=== PATIENT | male | born 1980 | race Caucasian/White ===

== ENCOUNTER 2022-06-22 11:13 | Emergency (ER) | payer SELFPAY ==
[2022-06-22 13:35] LABS: Bilirubin Negative (Negative); Blood, Urine Negative (Negative); Clarity Clear (Clear); Glucose, Urine (Dipstick) Normal (Negative); Ketone, Urine Negative (Negative); Leukocyte 250 Leu/uL (Negative); Nitrite Negative (Negative); Protein, Urine (Dipstick) Negative (Neg-Trace); RBC/HPF 0-3 HPF (0-3); Renal Epithelial 0-3 HPF (None Seen); Specific Gravity, Urine 1.013 (1.002-1.036); Squamous Epithelial 0-3 HPF (0-3); Urobilinogen Normal mg/dL (Less than 2); pH, Urine 6.5 (5.0-9.0)
[2022-06-22 13:43] LABS: Bacteria/HPF Rare-Few HPF (None Seen)
[2022-06-22 14:11] LABS: SARS-CoV-2 NAA Rapid Test Not Detected (NotDetected)
[2022-06-22 22:18] LABS: Chlam.trachomatis by PCR,Urine Not Detected (NotDetected)
== END 2022-06-22 14:50 | disposition home or self-care (01) ==
LOC: ERS 11:13
DX: R30.0 Dysuria (principal); R82.81 Pyuria; R09.81 Nasal congestion; I10 Essential (primary) hypertension; F17.210 Nicotine dependence, cigarettes, uncomplicated; Z20.822 Contact with and (suspected) exposure to COVID-19
CPT/HCPCS: 74176; 81003; 81015; 87086; 87491; 87591

== ENCOUNTER 2025-07-16 10:27 | Emergency (ER) | payer OTHER, SELFPAY ==
[2025-07-16 10:58] LABS: CAUTI Indications for Culture Acute Hematuria; Glucose, Urine (Dipstick) Normal (Negative); Leukocyte 500 Leu/uL (Negative); Protein, Urine (Dipstick) 70 mg/dL (Neg-Trace); Specific Gravity, Urine 1.020 (1.002-1.036)
[2025-07-16 11:02] LABS: WBC/HPF 21-50 HPF (0-3)
[2025-07-16 11:03] LABS: Bacteria/HPF 2+ HPF (None Seen)
[2025-07-16 11:04] LABS: #Basophils 0.13 10x3/uL (0.0-0.2); #Eosinophils 0.33 10x3/uL (0.0-0.7); #Monocytes 1.45 10x3/uL (0.11-0.59); #Neutrophils 12.93 10x3/uL (1.40-6.50); %Basophils 0.8 % (0.0-1.0); %Eosinophils 2.0 % (0.0-10.0); %Lymphocytes 9.0 % (21.0-51.0); %Monocytes 8.8 % (0.0-10.0); %Neutrophils 78.2 % (42.0-75.0); Hematocrit 47.0 % (42.0-52.0); Hemoglobin 14.6 g/dL (14.0-18.0); Mean Corpuscular Hemoglobin 28.7 pg (27.0-31.0); Mean Corpuscular Volume 92.5 fL (78.0-98.0); Platelet Count 361 10x3/uL (130-400); Red Blood Cell (RBC) Count 5.08 mill/uL (4.70-6.10); White Blood Cell (WBC) Count 16.52 10x3/uL (4.8-10.8)
[2025-07-16 11:05] LABS: Urine Culture Reflex Yes Yes
[2025-07-16 11:22] LABS: ALT (SGPT) 15 U/L (Less than 45); AST (SGOT) 19 U/L (11-34); Albumin 3.3 g/dL (3.1-4.5); Alkaline Phosphatase 78 U/L (40-110); Anion Gap 11 mmol/L (10-20); BUN (Urea Nitrogen) 24 mg/dL (8.9-20.6); Bilirubin, Total 0.1 mg/dL (0.3-1.2); Calc. Creatinine Clearance 0 mL/min (70-130); Calcium 9.6 mg/dL (7.8-10.44); Carbon Dioxide 24 mmol/L (22-29); Chloride 106 mmol/L (98-107); Globulin 4.8 g/dL (2.4-3.5); Glucose 92 mg/dL (70-105); Potassium 4.7 mmol/L (3.5-5.1); Sodium 136 mmol/L (136-145)
[2025-07-16] MEDS ORDERED: cefTRIAXone (ROCEPHIN) 1 GM VIAL ONE (11:33)
[2025-07-17 01:21] LABS: Chlam.trachomatis by PCR,Urine Not Detected (NotDetected); GC N.gonorrhoeae PCR,UrineVOID Not Detected (NotDetected)
== END 2025-07-16 14:12 | disposition home or self-care (01) ==
LOC: ERS 10:27
DX: N30.01 Acute cystitis with hematuria (principal); K59.00 Constipation, unspecified; I10 Essential (primary) hypertension; F17.210 Nicotine dependence, cigarettes, uncomplicated
CPT/HCPCS: 36415; 71045; 74177; 80053; 81001; 83605; 83690; 83880; 84484; 85025; 87040; 87077; 87086; 87428; 87491; 87591; 93005; 96365; J0696